=== PATIENT | male | born 1975 | race Asian ===

== ENCOUNTER 2022-04-11 18:25 | Emergency (ER) | payer MEDICAID ==
[~2022-04-11] VITALS: Ht 170.2 cm; Wt 83.5 kg
[2022-04-11 18:28] VITALS: BP_SYST 146
--- NOTE | 2022-04-11 18:39 | NUR ---
PT BIB SELF AWAKE AND ALERT, AOX4. PT C/O SOB, ON AND OFF FOR PAST 2 MONTHS. PT DENIES N/V. PERRLA. PT DENIES CHEST PAIN. PT STATE HE HAS A SLIGHT COUGH. O2 SAT IS 98 % ON RA.
--- NOTE | 2022-04-11 18:43 | NUR ---
MD DR VERA AT BEDSIDE
[2022-04-11] MEDS ORDERED: PRED20TA PO (18:57)
[2022-04-11 20:03] VITALS: BP_SYST 147
--- NOTE | 2022-04-11 20:03 | NUR ---
Patient given written and verbal discharge instructions and verbalizes understanding. ER MD Maynard discussed with patient the results and treatment provided. Patient in stable condition. ID arm band removed. Rx of Prednisone sent to pharmacy of choice. Patient educated to follow up with PMD. Opportunity for questions provided and answered. Medication side effect fact sheet provided.
== END 2022-04-11 20:01 | disposition home or self-care (01) ==
LOC: SED 18:25
DX: R06.02 Shortness of breath (principal); R05.9 Cough, unspecified; Z79.899 Other long term (current) drug therapy
CPT/HCPCS: 93005; 99283